=== PATIENT | male | born 1995 | race Caucasian/White ===

== ENCOUNTER 2017-08-06 17:35 | Emergency (ER) | payer OTHER ==
[2017-08-06 17:42] VITALS: BP 137/81; TEMP 97.4; BMI 19.2
--- NOTE | 2017-08-06 18:04 | PDOC ---
History of Present Illness - General History Source: Patient Exam Limitations: No Limitations - History of Present Illness Initial Comments: 08/06/17 18:44 The patient is a 22-year-old male, with no significant past medical history, who presents to the ED s/p a near-syncopal episode today. The patient states that he began to experience a headache, body aches, and abdominal pain this morning. Pt took a nap and woke up feeling a little better. At around 5PM, he reports that he was watching movies and began to experience abdominal discomfort accompanied by nausea. He got up and began to panic. He states that he began sweating profusely and felt his hands go numb. Boyfriend was with the patient at the time and reports that he looked pale and seemed as if he was going to pass out. The patient reports that he had not had much to eat or drink today. The patient denies any fever, chills, or cough. He denies any vomiting, or diarrhea. He denies any chest pain or shortness of breath. <Anaid Hogan - Last Filed: 08/06/17 18:43> <Sravanthi Farr - Last Filed: 08/06/17 19:13> - General Chief Complaint: Syncope/Near Syncope Stated Complaint: FELT LIKE PASSING OUT Time Seen by Provider: 08/06/17 17:40 Past History <Anaid Hogan - Last Filed: 08/06/17 18:43> - Past Medical History COPD: No Other medical history: DENIES - Suicide/Smoking/Psychosocial Hx Smoking History: Never smoked Have you smoked in the past 12 months: No Hx Alcohol Use: No Drug/Substance Use Hx: No <Sravanthi Farr - Last Filed: 08/06/17 19:13> - Past Medical History Allergies/Adverse Reactions: Allergies Allergy/AdvReac Type Severity Reaction Status Date / Time amoxicillin Allergy Verified 08/06/17 17:39 erythromycin base Allergy Verified 08/06/17 17:39 Home Medications: Ambulatory Orders NK [No Known Home Medication] 08/06/17 Review of Systems - Review of Systems Able to Perform ROS?: Yes Comments:: 08/06/17 18:45 GENERAL/CONSTITUTIONAL: (+)Diaphoresis. No fever or chills. No weakness. HEAD, EYES, EARS, NOSE AND THROAT: No change in vision. No ear pain or discharge. No sore throat. CARDIOVASCULAR: No chest pain or shortness of breath. RESPIRATORY: No cough, wheezing, or hemoptysis. SKIN: No rash GASTROINTESTINAL: (+)Nausea, abdominal pain. No vomiting, diarrhea or constipation. GENITOURINARY: No dysuria, frequency, or change in urination. MUSCULOSKELETAL: No joint or muscle swelling or pain. No neck or back pain. NEUROLOGIC: (+)Headache, numbness in hands, near-syncopal episode. No vertigo, loss of consciousness. ENDOCRINE: No increased thirst. No abnormal weight change. HEMATOLOGIC/LYMPHATIC: No anemia, easy bleeding, or history of blood clots. ALLERGIC/IMMUNOLOGIC: No hives or skin allergy. <Anaid Hogan - Last Filed: 08/06/17 18:43> *Physical Exam - Vital Signs Last Vital Signs Temp Pulse Resp BP Pulse Ox 97.4 F L 102 H 20 137/81 99 08/06/17 17:35 08/06/17 17:35 08/06/17 17:35 08/06/17 17:35 08/06/17 17:35 <Anaid Hogan - Last Filed: 08/06/17 18:43> - Vital Signs Last Vital Signs Temp Pulse Resp BP Pulse Ox 97.4 F L 102 H 20 137/81 99 08/06/17 17:35 08/06/17 17:35 08/06/17 17:35 08/06/17 17:35 08/06/17 17:35 - Physical Exam Comments: GENERAL: Awake, alert, and fully oriented, in no acute distress HEAD: No signs of trauma EYES: PERRLA, EOMI, sclera anicteric, conjunctiva clear ENT: Auricles normal inspection, hearing grossly normal, nares patent, oropharynx clear without exudates. Dry mucosa NECK: Normal ROM, supple, no lymphadenopathy, JVD, or masses LUNGS: Breath sounds equal, clear to auscultation bilaterally. No wheezes, and no crackles HEART: Regular rate and rhythm, normal S1 and S2, no murmurs, rubs or gallops ABDOMEN: Soft, nontender, normoactive bowel sounds. No guarding, no rebound. No masses EXTREMITIES: Normal range of motion, no edema. No clubbing or cyanosis. No cords, erythema, or tenderness NEUROLOGICAL: Cranial nerves II through XII grossly intact. Normal speech, normal gait. Motor and sensation intact. SKIN: Warm, Dry, normal turgor, no rashes or lesions noted. <Sravanthi Farr - Last Filed: 08/06/17 19:13> Heart Score/ECG Review - ECG Impressions Comment:: EKG read 18:27- Sinus tach 101 bpm, no acute ST/T changes <Sravanthi Farr - Last Filed: 08/06/17 19:13> ED Treatment Course - LABORATORY CBC & Chemistry Diagram: 08/06/17 18:40 08/06/17 18:40 <Sravanthi Farr - Last Filed: 08/06/17 19:13> *DC/Admit/Observation/Transfer - Attestations Scribe Attestion: 08/06/17 18:50 Documentation prepared by Anaid Hogan, acting as medical record administrator for Sravanthi Farr MD. <Anaid Hogan - Last Filed: 08/06/17 18:43> - Discharge Dispostion Admit: No <Sravanthi Farr - Last Filed: 08/06/17 19:13> Diagnosis at time of Disposition: Near syncope - Discharge Dispostion Disposition: HOME Condition at time of disposition: Stable - Patient Instructions Printed Discharge Instructions: DI for Syncope in Adults (Fainting), DI for Dehydration -- Adult
[2017-08-06] MEDS ORDERED: SODIUM CHLORIDE 1,000 ML IV STA (18:27)
[2017-08-06 19:02] LABS: BASO % 0.3 % (0-2.0); EOS % 0.5 % (0-4.5); HEMATOCRIT 48.6 % (35.4-49); HEMOGLOBIN 16.4 GM/dl (11.7-16.9); LYMPH % 8.4 % (8-40); MCH 30.9 pg (25.7-33.7); MCHC 33.8 g/dl (32.0-35.9); MEAN CELL VOLUME 91.2 fl (80-96); MONO % 7.9 % (3.8-10.2); NEUT % 82.9 % (42.8-82.8); PLATELET COUNT 161 K/MM3 (134-434); RBC 5.33 M/mm3 (4.00-5.60); RDW 11.9 % (11.9-15.9); WHITE BLOOD COUNT 7.5 K/mm3 (4.0-10.8)
[2017-08-06 19:10] LABS: ALBUMIN 4.5 g/dl (3.5-5.0); ALK PHOS 56 U/L (32-92); ANION GAP 4 (8-16); BILIRUBIN,TOTAL 1.3 mg/dl (0.2-1.0); BLOOD UREA NITROGEN 15 mg/dl (7-18); CALCIUM 9.2 mg/dl (8.4-10.2); CHLORIDE 103 mmol/L (98-107); CO2 31 mmol/L (22-28); CREATININE 0.8 mg/dl (0.6-1.3); GLUCOSE,RANDOM 107 mg/dl (74-106); POTASSIUM 3.7 mmol/L (3.5-5.1); SGOT/AST 32 U/L (10-42); SGPT/ALT 45 U/L (10-40); SODIUM 138 mmol/L (136-145); TOT PROT 7.3 g/dl (6.4-8.3)
[2017-08-06 19:35] LABS: TROPONIN I (DFP) < 0.03 ng/ml (0.03-0.50)
[2017-08-06 19:58] VITALS: PULSE 87
--- NOTE | 2017-08-07 08:53 | EKG ---
Test Reason : Blood Pressure : / mmHG Vent. Rate : 101 BPM Atrial Rate : 101 BPM P-R Int : 132 ms QRS Dur : 110 ms QT Int : 356 ms P-R-T Axes : 072 058 047 degrees QTc Int : 461 ms SINUS TACHYCARDIA POSSIBLE LEFT ATRIAL ENLARGEMENT RSR' OR QR PATTERN IN V1 SUGGESTS RIGHT VENTRICULAR CONDUCTION DELAY LEFT VENTRICULAR HYPERTROPHY NONSPECIFIC ST AND T WAVE ABNORMALITY ABNORMAL ECG NO PREVIOUS ECGS AVAILABLE Confirmed by QIAN WATKINS, NAYELY ([id number]) on 08/07/2017 8:53:41 AM Referred By: DR ELI Confirmed By:NAYELY LAUGHLIN MD
== END 2017-08-06 20:00 | disposition home or self-care (01) ==
LOC: FER 17:35
PROC: 3E0337Z Introduction of Electrolytic and Water Balance Substance into Peripheral Vein, Percutaneous Approach (ICD-10-PCS; principal; 2017-08-06)
DX: R55 Syncope and collapse (principal)
CPT/HCPCS: 36415; 80053; 82550; 84484; 85025; 93005; 99285-25